=== PATIENT | female | born 1955 | race Caucasian/White ===

== ENCOUNTER → 2024-12-03 09:43 | Outpatient (CLI) | payer MEDICARE, SELFPAY ==
--- NOTE | 2024-12-03 10:30 | EKG_ITS ---
[address], [place] [address] Test Date: 2024-12-03 Pat Name: Katey Jha Department: Room: Gender: Female Car Manager: ESTELA : [id number] Requested By: Order Number: [id number] Reading MD: Valentín Leon MD Measurements Intervals Melvin Rate: 61 P: 61 AL: 158 QRS: 10 QRSD: 80 T: 39 QT: 418 QTc: 420 Interpretive Statements Normal sinus rhythm Electronically Signed On 12-03-2024 16:25:12 PST by Valentín Leon MD
[2024-12-03 10:53] LABS: Add Manual Diff / Slide Review NO; Basophils Absolute Auto 100 /uL (0-100); Basophils Percent Auto 1.2 % (0-2); Eosinophils Absolute Auto 200 /uL (0-450); Eosinophils Percent Auto 3.6 % (2-4); Hematocrit 39.3 % (36-46); Hemoglobin 13.6 g/dL (12.0-16.0); Lymphocytes Absolute Auto 2500 /uL (1100-4500); Lymphocytes Percent Auto 38.6 % (25-40); Mean Corpuscular HGB Conc 34.7 % (30-36); Mean Corpuscular Hemoglobin 32.2 PG (26-34); Mean Corpuscular Volume 92.8 fL (80-100); Monocytes Absolute Auto 500 /uL (0-900); Monocytes Percent Auto 8.3 % (3-14); Neutrophils Absolute Auto 3200 /uL (1500-7000); Neutrophils Percent Auto 48.3 % (50-75); Platelet Count 400 X10^3/uL (150-400); Red Blood Cell Count 4.23 X10^6/uL (4.0-5.2); Red Cell Distribution Width 13.7 % (11.6-14.8); White Blood Cell Count 6.5 X10^3/uL (4.5-11.0)
[2024-12-03 11:10] LABS: Albumin 4.4 g/dL (3.5-5.0); BUN Creatinine Ratio 19.2 (6-22); Blood Urea Nitrogen 15 mg/dL (7-17); Calcium 9.5 mg/dL (8.4-10.2); Carbon Dioxide 25 mmol/L (22-32); Chloride 106 mmol/L (98-107); Estimated Glomerular Filt Rate > 60 mL/min (>60); Glucose 101 mg/dL (80-110); HEMOLYSIS < 15 (0-50); Potassium 4.3 mmol/L (3.4-5.1); Sodium 138 mmol/L (137-145)
[2024-12-03 11:17] LABS: Prealbumin 43.6 mg/dL (17.6-36.0)
[2024-12-03 11:33] LABS: Vitamin D 25 Hydroxy (D3) 30.5 ng/mL (30.0-100.0)
== END ==
LOC: RAD 09:50 → RESP 11:07
PROVIDERS: PCP Family Medicine; Referring Provider Orthopaedic Surgery Adult Reconstructive Orthopaedic Surgery; Visit Provider Orthopaedic Surgery Adult Reconstructive Orthopaedic Surgery
DX: Z01.818 Encounter for other preprocedural examination (principal); E55.9 Vitamin D deficiency, unspecified; R77.0 Abnormality of albumin; R73.9 Hyperglycemia, unspecified; Z01.812 Encounter for preprocedural laboratory examination
CPT/HCPCS: 36415; 80048; 82040; 82306; 83036; 84134; 85025; 93005; 93010

== ENCOUNTER 2025-06-29 08:45 | Inpatient (IN) | payer MEDICARE, SELFPAY ==
[2025-06-23 13:39] VITALS: BMI 24.3
[2025-06-29] VITALS (10 sets, daily range): BP systolic 115–144; BP diastolic 58–86; PULSE 58–73; RESP 16–20; TEMP 36.4–37; O2SAT 94–100; BMI 24.3
--- NOTE | 2025-06-29 06:45 | DI.RAD.S_ITS ---
PROCEDURE: XR KNEE LT 1TO2V INDICATIONS: TKA TECHNIQUE: 2 view(s) of the knee acquired. COMPARISON: None. FINDINGS: Bones: Patient is status post knee joint arthroplasty. Hardware components are in expected positions. Visualized bony structures are intact. Soft tissues: Overlying postoperative changes are noted. IMPRESSION: Expected post-operative appearance of a knee arthroplasty. Dictated by: Jose Alberto Melchor M.D. on 06/30/2025 at 9:16 Approved by: Jose Alberto Melchor M.D. on 06/30/2025 at 9:16
[2025-06-29] MEDS: LACTATED RINGERS 1,000 ML 42 ML IV ×2 (09:21→12:39)
[2025-06-29] MEDS: MELOXICAM 7.5 MG TABLET 15 MG PO (09:22)
[2025-06-29] MEDS: ACETAMINOPHEN 325 MG TABLET 975 MG PO (09:23)
[2025-06-29] MEDS: VANCOMYCIN 1,000 MG in SODIUM CHLORIDE 0.9% 250 ML 250 MG IV (09:51)
--- NOTE | 2025-06-29 10:33 | P.OP_ITS ---
Operative Date/Time/Diagnoses Date of procedure: 06/29/25 Time of procedure: 11:00 Pre-op diagnosis: Left patellofemoral pain with previous left patellofemoral arthroplasty, left knee OA Post-op diagnosis: same Procedure & Clinicians Procedure: Left total knee revision patellofemoral arthroplasty to total knee arthroplasty Same procedure(s) as scheduled: Yes Indications: The patient has had progressively worsening left knee pain with radiographic changes consistent with arthritis and she has a history of a left patellofemoral arthroplasty but is having ongoing symptoms with pain and swelling. Non- operative management has failed and the patient has requested total knee replacement. The risks, benefits and alternatives to surgery were discussed with the patient prior to proceeding. Risks discussed included, but were not limited to, failure to relieve pain, stiffness, infection, nerve damage, deep venous thrombosis, pulmonary embolism, stroke, coma, heart attack, permanent paralysis and , as well as the potential need for eventual revision of the prosthetic. Surgeon: Nery Bowser Knotting Machine Operator Portable: Sang Duenas Anesthesia Type: Spinal and Peripheral nerve block Operative Notes Findings: Significant medial and lateral compartment osteoarthritis, no evidence of patellar component loosening, acceptable tracking of the patella, acceptable stability Closure Type: primary Specimen(s): other (Cultures and PCR) Prosthetic devices, grafts, tissues, transplants, or devices: Bowser and Nephew journey BCS2 size 4 femur, size 2 tibia, poly 9 Applied: none Estimated Blood Loss (mL): 250 Blood products transfused: none Tourniquet time (min): 104 Procedure in detail: The patient was seen in the pre-operative area, where the patient identified the left knee as the operative site and this was marked with my initials. The patient received pre-operative antibiotics, and was taken to the operating room and placed on the operative table in the supine position. After satisfactory anesthesia, a manager maritime out was performed. The left leg was encircled with a tourniquet about the proximal thigh, and the leg was prepared from the toes to the tourniquet with ChloroPrep in the usual fashion and draped through sterile drapes. The leg was elevated and exsanguinated with Eschmark bandage and the tourniquet inflated to [250] mmHg pressure. A PA was used during the procedure and was essential for intraoperative retraction and safe implantation of the components. The knee was approached through an approximately 20 cm incision centered over the patella and carried into the knee through a left knee medial parapatellar arthrotomy. Portion of the medial and lateral meniscus was resected. Soft tissue was carefully mobilized around the patella the patella. The patella was tested and it was noted that it was stable. There was no evidence of patellar loosening. Intraoperative cultures and PCR were sent of synovium and some bony tissue. A small amount of additional medial and lateral meniscus was resected. The femoral component was checked it was noted that it had not loosened. The patient was placed through a range of motion. There was acceptable tracking of the patella. Pins were placed for Cori assisted robotic navigation. A plan was taken and developed to optimize range of motion and stability. The femoral component was then removed. The Cori robotic bur was used to remove the distal femur for the distal femoral cut. It looked like an appropriate distal femoral cut. Next attention was directed at removing the femoral part of the patellofemoral replacement. Combination of a tPA S saw and multiple osteotomes were used to meticulously loose in the component. I was able to pop off the component leaving the majority of the cement behind. There did not appear to be any significant wear either on the patella or on the femoral component and there was no evidence of loosening. There was severe arthritic change in the tibial femoral joint. Cultures were sent of the deep bone underneath the femoral component and some of the synovium for standard cultures and PCR. The block was carefully checked with robotic navigation. The rotation was assessed and the appropriate size femoral guide was placed on the distal femur and finishing cuts were made. There was no evidence of notching. The anterior femoral cut was noted to be slightly proximal to a portion of the cement mantle and I did resect a portion of the cement mantle. The anterior, posterior and chamfer cuts were then made. The posterior osteophytes and soft tissues were then removed. The posterior capsule was injected with part of a mixture of 60 ml 0.25% Marcaine mixed with 20 ml Exparel for post operative pain control. The remainder of this mixture was injected into the capsule and subcutaneous tissues during cement curing. The tibial guide was meticulously navigated with robotic assisted navigation. The tibial cut was made without difficulty. The rotation was assessed. The patient was placed in extension residual medial and lateral meniscus as well as any residual bone was carefully resected. [No] additional tibia was resected. Hemostasis was achieved especially posteriorly. Additional local was injected into the posterior capsule. The extension gap was assessed. The femoral component was trial was placed and the notch was finished. Trial tibial and femoral components were then placed and the knee placed through a range of motion. Range of motion was [0-130], with good stability throughout the range. The trials were then removed, and the tibia was finished. The bone was prepared with pulsatile lavage, and dried with a sponge. Cement was applied and the final prosthetics placed. Excess cement was removed during and after cement curing. A brief Betadine soak was performed. After confirming there was no extruded cement posteriorly, the final tibial insert was placed. The knee was copiously irrigated and the tourniquet deflated. Hemostasis was obtained with the Bovie cautery. The capsule was closed with interrupted vicryl suture. The subcutaneous layer was closed with barbed sutures, and the skin with a running 3-0 V-Lock suture and Surgical glue. An Aquacel Ag dressing was applied and the patient was taken to recovery having tolerated the procedure well. Complications: none Post-operative Condition: stable Disposition: Acute Care Plan for aftercare: The patient will be maintained on a standard total knee replacement protocol with weight bearing as tolerated. The patient will receive aspirin and sequential compression devices for DVT prophylaxis. The patient will be discharged home when safe for the home environment.
[2025-06-29] MEDS: diphenhydrAMINE 50 MG/ML VIAL 25 MG IV (10:42)
--- NOTE | 2025-06-29 11:03 | SUR.PREOP ---
Block start time [1054] . Monitoring initiated and maintained throughout procedure. Oxygen and medications given per anesthesiologist instructions. Patient remained stable throughout procedure, no adverse reactions noted. Block end time [1057].
--- NOTE | 2025-06-29 11:07 | SUR.PREOP ---
Stopped vancomycin per pt's request and pt having itiching. Informed Radha Cordova RN nure anesthesia and Benadryl given 25 mg IV. Pt did not develop hives or SOB or any signs of anaphylaxis per the vancomycin. Antibiotic stopped when pt complained of itching. Pt currently denies any itching. Vancomycin approximately 150 cc infused before itching started. Pt currently states she feels fine and no further itiching.
[2025-06-29] MEDS: CEFAZOLIN 2 GM/100 ML PREMIX 100 ML IV ×2 (11:30→21:35)
--- NOTE | 2025-06-29 11:34 | PM.PREOP ---
Pre-operative Note Interval Note History & Physical reviewed/Exam performed by Physician: Yes Changes to H&P: No
[2025-06-29] MEDS: TRANEXAMIC ACID 1,000 MG VIAL 1000 MG INJ ×2 (11:35→13:45)
--- NOTE | 2025-06-29 11:53 | SUR.OPER ---
Supine on padded OR bed. Pillow under head, arms secured on padded armboards <90 degree abduction. Safety belt across torso. Non-operative leg secured with tape over blanket over lower leg. Operative leg secured in DeMayo/Edgardo/Nathe positioner. Foam padded brace at thigh of operative leg.
[2025-06-29] MEDS: BUPIVACAINE LIPOSOME 266 MG/20 ML VIAL INJ (12:02)
[2025-06-29] MEDS: BUPIVACAINE 0.25% W/ EPI 30 ML VIAL 60 ML INJ (12:04)
[2025-06-29] MEDS: ONDANSETRON 4 MG/2 ML INJ IV (14:31)
[2025-06-29] MEDS: OXYCODONE IR 5 MG TABLET PO ×3 (14:31→21:35)
[2025-06-29] MEDS: hydrOXYzine 50 MG/ML INJ 25 MG IM (14:31)
[2025-06-29] MEDS: ACETAMINOPHEN 325 MG TABLET 650 MG PO ×2 (15:18→21:35)
[2025-06-29] MEDS: IBUPROFEN 400 MG TABLET PO ×2 (15:19→21:35)
[2025-06-29] MEDS: LACTATED RINGERS 1,000 ML 100 ML IV (15:24)
[2025-06-29] MEDS: CHOLESTYRAMINE/ASPARTAME 4 GM PACK PO (18:06)
[2025-06-29] MEDS: ASPIRIN EC 81 MG TABLET PO (21:36)
[2025-06-30] MEDS: CEFAZOLIN 2 GM/100 ML PREMIX 100 ML IV (03:48)
[2025-06-30] MEDS: ACETAMINOPHEN 325 MG TABLET 650 MG PO ×2 (03:49→08:32)
[2025-06-30 06:16] LABS: Hematocrit 32.0 % (36-46); Hemoglobin 11.3 g/dL (12.0-16.0)
[2025-06-30] MEDS: CHOLESTYRAMINE/ASPARTAME 4 GM PACK PO (06:19)
[2025-06-30] MEDS: PROPRANOLOL 10 MG TABLET 30 MG PO (06:19)
--- NOTE | 2025-06-30 07:37 | PM.DS.1 ---
History of Present Illness History of Present Illness Date Patient Seen: 06/30/25 Time Patient Seen: 07:38 Chief complaint: INPT Narrative: The patient had left knee osteoarthritic change with a history of prior patellofemoral arthroplasty. She was admitted for revision knee arthroplasty. Discharge Providers Provider Date of admission: 06/29/25 08:45 Discharge Date: 06/30/25 Primary care physician: Oneida Hull MD Consults: 06/29/25 06:45 Consult to Anesthesiology Routine Comment: Consulting Provider: Anesthesiologist Reason for consultation: Regional block for post operative pain control Has provider been notified: No 06/29/25 15:00 Consult to Discharge Planning Routine Comment: Consult to Occupational Therapy Evaluate & Treat Comment: Physician Instructions: Evaluate and treat Consult to Physical Therapy Evaluate & Treat Comment: Physician Instructions: postop TKA protocol Discharge provider: Nery Bowser MD Summary Hospital Course Discharge Diagnosis: Left knee osteoarthritis with patellofemoral arthroplasty. Failed left knee patellofemoral arthroplasty revision total knee arthroplasty Hospital Course: Patient was admitted for revision total knee arthroplasty. She underwent the procedure without difficulty. She had voiding issues postoperatively after a spinal anesthesia which lasted longer than anticipated. She required in and out straight cath. She did well overnight mobilized with nursing and physical therapy and was discharged to home for outpatient physical therapy. Status at Discharge Cognitive/behavioral status at discharge: oriented Functional status at discharge: uses cane/walker Overall status at discharge: patient is progressing back to baseline Time Spent with Patient Time spent: Less than 30 minutes Exam Vital Signs (past 8 hours): Oxygen Delivery Method Room Air Oxygen Flow Rate 0 Narrative Exam Narrative: She is alert she is oriented she was resting comfortably bed she was able to do a straight leg raise on left, her dressing is dry, her calf is soft, she was neurologically intact distally Objective Labs 06/30/25 04:55 Labs: Laboratory Results - last 24 hr 06/30/25 04:55 Hgb 11.3 L Hct 32.0 L PFSH Medical History (Updated 06/24/25 @ 14:18 by Mar Sweet RN) Esophagitis (03/2025) HTN (hypertension) Crohn disease Asthma Arthritis Anemia GERD (gastroesophageal reflux disease) Surgical History (Updated 06/24/25 @ 14:18 by Mar Sweet RN) Hx of bilateral cataract extraction Hx of left knee surgery (2012) Hx of right knee surgery (2009) Hx of tubal ligation Hx of tonsillectomy S/P small bowel resection Hx of eye surgery Hx of section Hx of cholecystectomy Social History household members: spouse Smoking Status: Never smoker alcohol intake: current Discharge Assessment & Plan Assessment and Plan Assessment: Doing well postoperatively. Plan of Treatment: Work with physical therapy today and plan for discharge to home for outpatient physical therapy. Discharge Plan Discharge Plan Patient Disposition: Home Discharge orders & Medications Prescriptions: New aspirin 81 mg Tablet,Delayed Release (Dr/Ec) 81 mg PO BID Qty: 90 0RF ibuprofen 400 mg Tablet 400 mg PO Q4H PRN (Reason: Pain, Mild (1-3)) Qty: 90 0RF ondansetron 4 mg Tablet,Disintegrating 4 mg PO Q4HR PRN (Reason: Nausea And Vomiting) Qty: 20 0RF oxycodone 5 mg Tablet 5 mg PO Q3H PRN (Reason: Pain, Moderate (4-6)) Qty: 30 0RF Continued azathioprine 50 mg tablet 50 mg PO BID Cholestyramine Light 4 gram powder 4 g PO BID Patient Comments: Take one scoop by oral route 3 times every day dissolved in 2 to 6 ounces of water or noncarbonated beverage before meals. Humira 40 mg/0.8 mL syringe kit 40 mg SUBCUT Q2W propranolol [Inderal LA] 60 mg capsule,extended release 24 hr 60 mg PO DAILY amlodipine [Norvasc] 10 mg tablet 10 mg PO DAILY Patient Comments: 03/28/25 2100 Acid Controller Complete 10-800-165 mg tablet,chewable 1 tab PO DAILY B12 1,000 mcg auto-injector 1,000 mcg SUBCUT QMONTH acyclovir 800 mg tablet 800 mg PO 3XD PRN (Reason: Herpes) Follow up/Referrals: Oneida Hull MD [Primary Care Provider, Medical] Activity Restrictions/Additional Instructions: Ambulate multiple times a day. Work on range of motion in the knee Diet/Activity/Treatments Diet: Diet as Tolerated Activity: Ambulate multiple times a day. Range motion and strengthening left knee Cold/Heat Therapy: Use ice multiple times a day. Other treatments: Take baby aspirin to prevent a blood clot. Skin/Wound/Dressing Care Skin care: Okay to shower. Report to your healthcare provider any signs of infection, such as:: chills, fever, night sweats, increased pain, unusual drainage and unusual redness Dressing: Remove Neville wrap in 1 day. Leave deep dressing on. Visit Report/Discharge Packet Instructions: DI for Knee Replacement, DI for Prescription Opioid Use Stand Alone Forms: Patient Portal/API, Stroke Signs & Symptoms Discharge Data Primary Care Provider: Oneida Hull Quality VTE Deep Vein Thrombosis/Pulmonary Embolism Present on Admission: No
[2025-06-30] MEDS: OXYCODONE IR 5 MG TABLET PO (08:33)
[2025-06-30] MEDS: DOCUSATE 100 MG CAPSULE PO (08:33)
[2025-06-30] MEDS: FAMOTIDINE 20 MG TABLET PO (08:33)
[2025-06-30] MEDS: ASPIRIN EC 81 MG TABLET PO (08:33)
[2025-06-30 08:50] VITALS: BP 139/76; PULSE 53; RESP 16; TEMP 36.6; O2SAT 99
--- NOTE | 2025-06-30 09:05 | OT.IP.EVAL ---
Current Diagnoses Unilateral primary osteoarthritis, left knee (06/29/25) Presence of artificial knee joint, bilateral (06/29/25) Surgery Performed Operation Date: 06/29/25 10:45 Actual Procedures p Conversion of prior patellofemoral joint arthroplasty to total knee arthroplasty(Left) - Nery Bowser MD Past Medical History (Last Updated 06/24/25 @ 14:18 by Mar Sweet, RN) Anemia Arthritis Asthma Crohn disease Esophagitis (03/2025) GERD (gastroesophageal reflux disease) HTN (hypertension) Surgical History (Last Updated 06/24/25 @ 14:18 by Mar Sweet, RN) Hx of bilateral cataract extraction Hx of section Hx of cholecystectomy Hx of eye surgery Hx of left knee surgery (2012) Hx of right knee surgery (2009) Hx of tonsillectomy Hx of tubal ligation S/P small bowel resection Occupational Therapy Inpatient Evaluation/Re-Eval M1 PT/OT-IP Prior Functional Status Start: 06/30/25 09:05 Freq: NEEDED Status: Active Protocol: Document 06/30/25 09:06 [facility] (Rec: 06/30/25 09:15 [facility] Desktop) Medical Review Prior Functional Status Communication I Mobility and Gait I and able to walk up to 1-1/2 miles without a device but would have spasms afterwards. Activities of Daily Able to do ADL and IADL needs but had pain at times. Living and IADL's Social History Household Members spouse Living Arrangements House Number of Floors ( 3 or More Floors Floors) Number of Stairs To NO steps from the garage, 8 steps with left rail up to Enter/Railing? the main level and another 8 steps with left rail to the bedroom. Home Environment Standard Height Toilet,Tub/Shower Home Equipment Front Wheel Walker,Tub Transfer Bench,Hand Held Shower Additional Social Pt's is retired and able to be home to assist History Comment pt. M2 OT-IP Current Condition Start: 06/30/25 09:05 Freq: Status: Active Protocol: Document 06/30/25 09:06 [facility] (Rec: 06/30/25 09:15 [facility] Desktop) Occupational Therapy Current Condition Current Condition Evaluation Date 06/30/25 Treatment Diagnosis S/P revision L TKA Weight Bearing Status Weight Bearing Weight Bear as Tolerated Status M3 OT- IP Subjective and Pain Start: 06/30/25 09:05 Freq: Status: Active Protocol: Document 06/30/25 09:06 [facility] (Rec: 06/30/25 09:15 [facility] Desktop) OT- Subjective Occupational Therapy Visit Type Type Initial Evaluation Visit Start Time 08:30 Visit Stop Time 09:05 Occupational Therapy Visit Comments Patient Comments Pt agreed to get up and get dressed. Patient/Caregiver TO go home. Goals OT Pain Assessment Pain When Pain Assessed At Rest Pain Present Pain Present Pain Reported Location Left Knee Intensity 6 Scale Used Numeric (0 - 10) M4 OT- IP ADL's Start: 06/30/25 09:05 Freq: Status: Active Protocol: Document 06/30/25 09:06 [facility] (Rec: 06/30/25 09:15 [facility] Desktop) OT PED-[id number]-[id number] General Evaluation Self-Feeding Ability Independent OT ADL-Grooming General Evaluation Grooming Ability Independent Areas Needing Combing/Brushing Hair Assistance OT ADL-Oral Care Comments Oral Care Comments Pt refused and used mouth wash earlier. OT ADL-Dressing General Eval Upper Body Dressing Independent Ability Lower Body Dressing Contact Guard Assistance Ability Comments OT Dressing Comments CGA for balance while pt slipping into her shoes while standing with FWW. Educated to dress the left side first and take out last. OT ADL-Toileting Comments OT Toileting Pt not having to go. Spoke of use of pads if needed so Comments not having to hurry to the bathroom. Educated to be mindful not to twist her knee for ADL needs. OT ADL-Bathing Comments OT Bathing Comments Pt refused and states already ordered tub bench for home use. M5 OT- IP IADL's Start: 06/30/25 09:05 Freq: Status: Active Protocol: Document 06/30/25 09:06 [facility] (Rec: 06/30/25 09:15 [facility] Desktop) OT-Instrumental Activities of Daily Living Home Safety Awareness Awareness of Need Good Awareness for Assistance at Home Ability to Problem Able to Problem Solve Solve Emergency Situations Medication Management Medication No Deficits Identified Management Money Management Money Management No Deficits Identified Meal Preparation Meal Preparation Caregiver Provides Assist Wordpress Developer Wordpress Developer Caregiver Provides Assist M6 OT- IP Functional Cognition Start: 06/30/25 09:05 Freq: Status: Active Protocol: Document 06/30/25 09:06 [facility] (Rec: 06/30/25 09:15 [facility] Desktop) Cognitive Factors Limiting Selfcare Function Cognitive Ability Level of Alertness Alert Patient Orientation Name,Age,Birthday,Month,Date,Year,Day of Week,Place, Situation Attention Span Capable of Focused Attention,Capable of Sustained Ability Attention Ability to Follow Able to Follow Multi-Step Commands Commands Cognitive Comments Cognitive Assessment Pt needing safety reminders not to orange picker the FWW and Comments to just roll it. OT- Vision and Hearing OT- Hearing Assessment OT- Hearing WFL Assessment OT- Vision Assessment Visual Acuity Glasses All The Time Visual Attentiveness WFL Occular Pursuits WFL M7 OT- IP Mobility and Balance Start: 06/30/25 09:05 Freq: Status: Active Protocol: Document 06/30/25 09:06 [facility] (Rec: 06/30/25 09:15 [facility] Desktop) OT-Transfer Assessment Sit to and From Stand Sit to and from Standby Assistance Stand Transfers Transfer Ability Standby Assistance Technique Transfer Destination Chair Transfer Technique Stand Step Pivot Devices Transfer Assistive None,Front Wheeled Walker Devices Comments Mobility Comments SBA to stand and walk to the sink and back. OT- Balance Assessment Sitting Balance and Reactions Static Sitting Normal Balance Ability Dynamic Sitting Good Balance Ability Standing Balance and Reactions Static Standing Good Balance Ability Dynamic Standing Fair Balance Ability M8 OT- IP Objective Assessments Start: 06/30/25 09:05 Freq: Status: Active Protocol: Document 06/30/25 09:06 [facility] (Rec: 06/30/25 09:15 [facility] Desktop) OT Gross Range of Motion Upper Extremity Range of Motion ROM Impairments WFL for needs. OT Strength Comments Strength Comments WFL for needs. M9 OT- IP Assessment and Plan Start: 06/30/25 09:05 Freq: Status: Active Protocol: Document 06/30/25 09:06 [facility] (Rec: 06/30/25 09:15 [facility] Desktop) OT Summary Assessment and Plan Potential Rehabilitation Excellent Potential Analytic Complexity Low at Evaluation Summary OT Impairments Pain,Balance,Functional Mobility,Bathing,Shower Transfers Progress Towards Progressing Toward Goals Goals Assessment Summary Pt low complexity and main barriers are steps and pain. Pt will be home to assist her. Pt mainly will need assist for showering and IADL needs for OT needs. Pt to go home with assist and attend outpt PT. Goals Self-Feeding Goal Independent Grooming Goal Independent Dressing Goal Independent Toileting Goal Independent Bathing Goal Standby Assistance Toilet Transfer Goal Independent Shower Transfer Goal Standby Assistance Days to Meet Goals 2 Treatment Plan OT Treatment Plan ADL Training,Functional Mobility,Patient/Family Education,Discharge Planning Discharge Recommendations OT Discharge Home with Assistance,Outpatient PT Recommendations Transportation Needs Private Vehicle at Discharge
--- NOTE | 2025-06-30 09:15 | PT.IIE ---
Current Diagnoses Unilateral primary osteoarthritis, left knee (06/29/25) Presence of artificial knee joint, bilateral (06/29/25) Surgery Performed Operation Date: 06/29/25 10:45 Actual Procedures p Conversion of prior patellofemoral joint arthroplasty to total knee arthroplasty(Left) - Nery Bowser MD Surgical History (Last Updated 06/24/25 @ 14:18 by Mar Sweet, RN) Hx of bilateral cataract extraction Hx of section Hx of cholecystectomy Hx of eye surgery Hx of left knee surgery (2012) Hx of right knee surgery (2009) Hx of tonsillectomy Hx of tubal ligation S/P small bowel resection Medical History (Last Updated 06/24/25 @ 14:18 by Mar Sweet, RN) Anemia Arthritis Asthma Crohn disease Esophagitis (03/2025) GERD (gastroesophageal reflux disease) HTN (hypertension) Physical Therapy Inpatient Evaluation/Re-Eval M1 PT/OT-IP Prior Functional Status Start: 06/30/25 11:30 Freq: NEEDED Status: Discharge Protocol: Document 06/30/25 09:15 AB (Rec: 06/30/25 11:51 AB [id number]) Medical Review Prior Functional Status Medical History Yes Reviewed Communication able to make needs known Mobility and Gait pt stated that she was independent with all mobilities and ambulation without AD Social History Household Members spouse Living Arrangements House Number of Floors ( 3 or More Floors Floors) Number of Stairs To no steps to enter Enter/Railing? has 7 steps with L rail ascending to main floor + 7 steps L rail ascending to bedroom level where pt plans to stay Home Environment Standard Height Toilet,Tub/Shower Home Equipment Front Wheel Walker,Crutches,Tub Transfer Bench,Hand Held Shower Additional Social pt has hiking poles History Comment pt has a high bed and uses a step stool to get into the bed M2 PT-IP Current Condition Start: 06/30/25 11:30 Freq: NEEDED Status: Discharge Protocol: Document 06/30/25 09:15 AB (Rec: 06/30/25 11:51 AB [id number]) Physical Therapy Current Condition Current Condition Evaluation Date 06/30/25 Treatment Diagnosis s/p L TKA revision; difficulty in waking Onset Date 07/01/25 M3 PT-IP Subjective Start: 06/30/25 11:30 Freq: NEEDED Status: Discharge Protocol: Document 06/30/25 09:15 AB (Rec: 06/30/25 11:51 AB [id number]) Subjective Physical Therapy Visit Type Type Initial Evaluation Visit Start Time 09:15 Visit Stop Time 10:35 Notes pt seen for split visits: 915 am to 925 and 1005 to 1035 am Number of IMPLEMENTATION ANALYST Visits 0 Therapy Pain Assessment Pain When Pain Assessed At Rest Pain Present Pain Present Pain Reported Location Left Knee Intensity 4 Pain Behaviors Guarding,Holding Area Pain Management Apply Cold,Distraction,Modification of Treatment,Re- Techniques positioning M4 PT-IP Mobility and Gait Start: 06/30/25 11:30 Freq: NEEDED Status: Discharge Protocol: Document 06/30/25 09:15 AB (Rec: 06/30/25 11:51 AB [id number]) PT-Bed Mobility Assessment Supine to Sit Supine to Sit Standby Assistance Sit to Supine Sit to Supine Standby Assistance PT-Transfer Assessment Sit to and From Stand Sit to and from Contact Guard Assistance,1 Person Assistance,Use of Stand Upper Extremities Equipment Transfer Assistive Gait Belt,Front Wheeled Walker Device Orthotic/Prosthetic No Devices or Brace: Transfers Transfer Destination Chair Transfer Technique ambulated Transfer Ability Level of Assist Standby Assistance,Contact Guard Assistance,1 Person Assistance,Use of Upper Extremities Comments Mobility Comments pt sitting on the chair and spouse in room. pt stated that she just finished with OT and is having increase L knee pain and wants to rest first before moving again. Obtained PLOF and home set up. pt agreed for PT to check back again. checked back on pt after ~ 30 min and pt agreed to do PT. caregiver training conducted. educated spouse on how to use safety belt and how to assist pt. sit to stand from chair CGA. pt ambulated to the bed using FWW SBA. CGA for stepping up on step stool using FWW for support. cued provided for techniques. pt completed sit<>supine SBA. sit to stand from bed CGA. pt ambulated towards the stairs using FWW ~ 125 ft SBA to CGA. spouse assisted pt. pt can be impulsive. cued to slow down. c/o increase L knee pain. educated pt and spouse on how to do stairs. pt completed up/down stairs holding on to L rail with B hands CGA and cues. spouse was able to assist pt. pt with c/o increase L knee pain and does not want to do more stairs. stated that she has to go back to her room . pt ambulated back to the room using FWW CGA and sat back on chair. positioned pt on the chair. call light and table placed within reach. Gait Assessment Gait Gait Assistance Standby Assistance,Contact Guard Assist Required: Distance (Feet) 125 Able to Maintain Yes Weight Bearing Status During Gait Assistive Devices Assistive Device Gait Belt,Front Wheeled Walker Orthotic/Prosthetic No Devices or Brace: Factors Limiting Gait Function Factors Limiting Decreased Activity Tolerance,Decreased Strength,Limited Gait Function Range of Motion,Pain,Poor Balance,Poor Safety Awareness Stair Climbing Assessment Evaluation Level of Assist On Contact Guard Assistance Stairs Devices Stair Climbing Left Railing Assistive Devices Technique/Endurance Stair Climbing Ascend and Descend Direction Stair Climbing Step to Step Technique Number of Steps 3 Climbed Query Text: Stair Climbing Set # 1 Repetitions (reps) PT-Balance Assessment Sitting Balance and Reactions Static Sitting Normal Balance Ability Dynamic Sitting Good Balance Ability Standing Balance and Reactions Static Standing Fair Balance Ability Dynamic Standing Fair Balance Ability Device Used FWW M5 PT-IP Objective Assessments Start: 06/30/25 11:30 Freq: NEEDED Status: Discharge Protocol: Document 06/30/25 09:15 AB (Rec: 06/30/25 11:51 AB [id number]) Orientation Orientation/Cognition Level of Alertness Alert Orientation Name,Place,Situation Safety Awareness Decreased Safety Awareness Memory Description No Deficits Noted Strength Lower Extremity Strength Hip 3+/5 Knee 3+/5 Comments Strength Comments L knee pain limiting assessment with pt guarding and anticipating the pain during testing. Muscle Tone Muscle Tone WNL Yes M6 PT-IP Treatment Start: 06/30/25 11:30 Freq: NEEDED Status: Discharge Protocol: Document 06/30/25 09:15 AB (Rec: 06/30/25 11:51 AB [id number]) Physical Therapy Treatment Education Education Provided Precautions,Weight Bearing Status,Post-Op Packet,Safety M7 PT-IP Assessment and Plan Start: 06/30/25 11:30 Freq: NEEDED Status: Discharge Protocol: Document 06/30/25 09:15 AB (Rec: 06/30/25 11:51 AB [id number]) PT Summary Assessment and Plan Potential Rehabilitation Fair Potential Status of Condition Evolving at Evaluation Summary Impairments Pain,ROM,Strength,Balance,Coordination,Sensation,Tone, Cognition,Bed Mobility,Transfers,Gait,Activity Tolerance Assessment Summary pt is a 70 y/o F s/p L TKA revision POD 1. pt is WBAT on LLE. pt requiring SBA to CGA with mobility using FWW. caregiver training conducted and spouse was able to assist pt safely. pt plans to go home and has outpt PT set up. Goals Bed Mobility Goal Independent Transfer Goal Independent,Front Wheeled Walker Gait Goal Independent,Front Wheel Walker Gait Distance 250 Other Goals up/down 7 steps L rail ascending SBA Days to Meet Goals 5 Frequency of Treatment Frequency Of Twice a Day Treatment Treatment Plan Physical Therapy Bed Mobility Training,Transfer Training,Gait Training, Treatment Plan Therapeutic Exercise,Balance Retraining,Post Op Education,Discharge Planning,Hot or Cold Pack, Neuromuscular Re-ed,Coordination Retraining,Manual Therapy Weight Bearing Status Weight Bearing Weight Bear as Tolerated Status Allowed Weight LLE WBAT Bearing Amount ( enter % or #) (%) Recommendations To Nursing Amount of Assist 1 Person Assist Needed Discharge Recommendations PT Discharge Home with Assistance,Outpatient PT Recommendations Transportation Needs Private Vehicle at Discharge - PT assist 1
[2025-06-30] MEDS: IBUPROFEN 400 MG TABLET PO (10:11)
--- NOTE | 2025-06-30 12:55 | CM.DANOTE ---
Initial DCP Assessment Visit Note Reviewed EMR and team rounds for pt's medical status and updates. 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 Pt resides independently in her own home with her spouse in [place]. She has been medically cleared for home d/c, and her spouse was able to transport her home. No CM d/c needs are identified at this time. Payor: Guevara Attending: Dr. Bowser Pt is a 70 year-old F post-op day 1 from a L-TKA. She has a hx of progressively worsening knee pain/swelling over the last 2-years, which is now significantly impacting her ability to do her ADL's. She tried conservative efforts at pain control including anti-inflammatories, injections, and activity modification without lasting benefit. She has a plan for OP PT and Ortho f/u. 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 Yes Advance Directives No on File History Provided By Medical Record Has Patient been No admitted in last 30 days? Prior Living House Arrangements Household Members spouse Type of Drives own vehicle transporation used prior to admit Independent with ADL Yes 's Is patient alert and Yes oriented? Caregiver for No Another DME Already Rented / Bath Bench,Elevated Toilet Seat,FWW / Walker Owned Comment hiking poles Patient/Family OP PT Therapy Preference Barriers to No Discharge Discharge Plan Home Transportation Spouse Arrangement Referrals Initiated None needed Whiteboard Updated Yes in Patient Room with name and ext. # of Platen Builder Up Review Status In Process Please Provide Date 06/30/25 Initial DC Assessment Was Performed Pre-Anesthesia Assessment Start: 06/23/25 13:39 Freq: Status: Complete Protocol: Document 06/23/25 13:39 LB (Rec: 06/23/25 13:47 LB [id number]) Pre-Anesthesia Assessment PAC Comment 06/24/25 Phone assessment. Patient Information Chart Review Reviewed Via Diagnostic Results BMP/CMP,CBC,EKG Comment 12/03/24 at . Primary [facility] Provider Seen Specialist in Yes Last 12 Months Specialist Seen Orthopedist Primary Language Belarusian Preferred Language Belarusian Mail Clerk Bills Required No Height 154.94 cm Weight 58.513 kg Body Mass Index (BMI 24.3 ) Hearing Ability Normal Visual Assist Glasses Barriers to Learning None Other Aids No Comment Glasses for reading. Hx Anesthesia No Reactions Hx Family Anesthesia No Reaction Hx Malignant No Hyperthermia Hx Blood No Transfusions Anesthesia Review No Requested Citrix Lead No alcohol intake current Alcohol intake a few times a week frequency Smoking Status Never smoker Substance Use Type [ does not use #R] Pain Present Denied Pain Musculoskeletal Difficulty Walking,Joint Stiffness Symptoms History of Falling ( No Recent or History of ) Patient is No completely paralyzed or completely immobile Mental Status Oriented to own ability Comment Will bring walker. Is patient on oxygen No ? Hx Sleep Apnea No Currently Taking a Yes: Propranolol 60mg daily. Beta Alejandro Can You Climb a Yes Flight of Stairs Without SOB Hx Chest Pain No Hx SOB No Hx Syncope or No Dizziness Anti-Coagulant No Therapy Has a Manager Asset No Cardiac Testing No Hx Pacemaker/ICD No Dysphagia Yes Gastrointestinal Diarrhea,Reflux Symptoms Comment Chron's. Urinary Catheter No Present Hx Urinary Self No Catheterization Diabetes No HgbA1C 5.0 Date 12/03/24 Patient No Lactating No Hx Drug Resistant No Organism Presence of External Yes: Bilat knees, bilat IOL. or Internal Medical Devices Have you had any No close contact with someone diagnosed with COVID-19? Are you experiencing No symptoms any of these symptoms? Comment Denies covid last 8 weeks. Marital Status Lives With spouse Current Living House Arrangements Number of Floors ( 3 or More Floors Floors) Number of Stairs To ~20 stairs with railing. Enter/Railing? Support System Spouse Does the Patient Yes Have Assistance After Surgery Patient Discharge Return Home Plan Description Additional comment Advised probable over night LOS. Feels Safe in Yes Current Environment Do you have a plan No Plan to hurt yourself or others? Do You Have Any No Spiritual Beliefs That May Affect Your HC Choices? Do You Have Any No Cultural Practices That May Affect Your HC Choices? Emergency Contact Raúl Jha - Name Emergency Contact [phone] Phone Number Advance Directives? No PAC Instructions Assistance for 24 hours post-op,Do not shave/clip surgical site,Durable medical equipment,Medications to take/avoid,No ETOH/petroleum product on skin DOS,NPO, Post-op transportation,Pre-surgical wash,Sensory aids, Sturdy shoes/comfortable clothes,Do not bring valuables and remove jewelry
== END 2025-06-30 11:20 | disposition home or self-care (01) | DRG 467 ==
PROVIDERS: Admitting Provider Orthopaedic Surgery; PCP Family Medicine; Referring Provider Orthopaedic Surgery; Visit Provider Orthopaedic Surgery
PROC: 0SRD0J9 Replacement of Left Knee Joint with Synthetic Substitute, Cemented, Open Approach (ICD-10-PCS; principal; 2025-06-29 10:45)
DX: M17.12 Unilateral primary osteoarthritis, left knee (principal); K50.90 Crohn's disease, unspecified, without complications; T84.093A Other mechanical complication of internal left knee prosthesis, initial encounter; Y79.2 Prosthetic and other implants, materials and accessory orthopedic devices associated with adverse incidents; Z79.624 Long term (current) use of inhibitors of nucleotide synthesis; I10 Essential (primary) hypertension
CPT/HCPCS: 36415; 64450; 73560; 85014; 85018; 87070; 87075; 87176; 87205; 87801; 97116; 97162; 97165; 97530; 97535; C1776; A9270; C1713; J0666; J0689; J1100; J1200; J2405; J2704; J3373; J3410